=== PATIENT | male | born 1975 | race Caucasian/White ===

== ENCOUNTER → 2020-02-23 | Outpatient (CLI) | payer OTHER ==
[2020-02-23 08:56] LABS: BASOPHILS % (AUTO) 0 % (0-1); EOSINOPHILS % (AUTO) 2 % (1-7); LYMPHOCYTES % (AUTO) 19 % (22-44); MEAN CORPUSCULAR HEMOGLOBIN 29.9 pg (27.5-34.5); MEAN CORPUSCULAR HGB CONC 35.1 g/dL (33.2-36.2); MEAN PLATELET VOLUME 9.2 fL (7.4-10.4); MONOCYTES % (AUTO) 7 % (2-9); NEUTROPHILS % (AUTO) 72 % (42-75); PLATELET COUNT 144 x10^3/uL (130-400); RED BLOOD COUNT 5.06 x10^6/uL (4.38-5.82)
[2020-02-23 08:59] LABS: ANION GAP 4 mmol/L (5-15); CALCIUM 8.9 mg/dL (8.5-10.1); CHLORIDE 111 mmol/L (98-107); CREATININE 1.21 mg/dL (0.7-1.3); INTERNATIONAL NORMALIZED RATIO 1.04 (0.93-1.1)
[2020-02-23 09:01] LABS: MD NO
== END | disposition home or self-care (01) ==
LOC: STAR 07:40
PROVIDERS: ATTEND Orthopaedic Surgery
DX: Z01.810 Encounter for preprocedural cardiovascular examination (principal); Z01.818 Encounter for other preprocedural examination; M17.11 Unilateral primary osteoarthritis, right knee; M25.561 Pain in right knee; Z79.01 Long term (current) use of anticoagulants; Z20.828 Contact with and (suspected) exposure to other viral communicable diseases
CPT/HCPCS: 80048; 83036; 85025; 85610; 85730; 87081; 87147; 87635; 87806; G0475

== ENCOUNTER 2020-02-28 05:07 | Observation (INO) | payer OTHER ==
[~2020-02-28] VITALS: Ht 188 cm; Wt 115.9 kg
[2020-02-28 06:00] VITALS: BP 125/86
[2020-02-28] MEDS ORDERED: ACETAMINOPHEN 500 MG TABLET PO ONE (06:00)
[2020-02-28] MEDS ORDERED: GABAPENTIN 300 MG CAPSULE PO ONE (06:00)
[2020-02-28] MEDS ORDERED: CHLORHEXIDINE 15 ML UDC MM ONE (06:00)
[2020-02-28] MEDS ORDERED: LACTATED RINGERS 1,000 ML IV SCH (06:00)
[2020-02-28] MEDS ORDERED: ROPIvacaine/PF 0.2%, 20 ML ONE (06:23)
[2020-02-28] MEDS ORDERED: TRANEXAMIC ACID 100 MG/ML, 10ML ONE (06:23)
[2020-02-28] MEDS ORDERED: KETOROLAC 60 MG/2 ML ONE (06:23)
[2020-02-28] MEDS ORDERED: SODIUM CHLORIDE 0.9% 50 ML ONE (06:24)
[2020-02-28] MEDS ORDERED: EPINEPHRINE 1 MG/ML, 1ML ONE ×2 (06:24→06:28)
[2020-02-28] MEDS ORDERED: FENTANYL PF 250 MCG/5ML ONE (06:26)
[2020-02-28] MEDS ORDERED: BUPIVACAINE/PF 0.5% ONE (06:34)
[2020-02-28] MEDS ORDERED: LIDOCAINE 1%, 20ML ONE (06:35)
[2020-02-28] MEDS ORDERED: TRIAMCINOLONE ACETONIDE 40 MG/ML, 1ML ONE ×2 (06:35→09:19)
[2020-02-28] MEDS ORDERED: MIDAZOLAM 1 MG/ML, 2ML ONE (06:52)
[2020-02-28] MEDS ORDERED: PROPOFOL 10 MG/ML, 20ML ONE (06:57)
[2020-02-28] MEDS ORDERED: SUCCINYLCHOLINE 20 MG/ML, 10ML ONE (06:57)
[2020-02-28] MEDS ORDERED: CEFAZOLIN 1,000 MG ONE (06:57)
[2020-02-28] MEDS ORDERED: ONDANSETRON 2MG/ML, 2ML ONE (06:57)
[2020-02-28] MEDS ORDERED: DEXAMETHASONE 4 MG/ML, 1ML ONE (06:57)
[2020-02-28] MEDS ORDERED: HYDROmorphone 1 MG/ML, 1ML INJ IVPush PRN ×2 (07:00→07:30)
[2020-02-28] MEDS ORDERED: ONDANSETRON 2MG/ML, 2ML IVPush PRN ×2 (07:00→07:30)
[2020-02-28] MEDS ORDERED: D5%-0.45NACL+KCL 20MEQ 1,000 ML IV SCH (07:00)
[2020-02-28] MEDS ORDERED: ONDANSETRON 4 MG TABLET PO PRN (07:00)
[2020-02-28] MEDS ORDERED: OXYcodone IR 5MG TABLET PO PRN (07:00)
[2020-02-28] MEDS ORDERED: PSYLLIUM PACKET PO PRN (07:00)
[2020-02-28] MEDS ORDERED: POLYETHYLENE GLYCOL 17 GM PACKET PO PRN (07:00)
[2020-02-28] MEDS ORDERED: METOCLOPRAMIDE 5 MG/ML, 2ML IVPush PRN (07:00)
[2020-02-28] MEDS ORDERED: MAGNESIUM HYDROXIDE 8%, 30ML UDC PO PRN (07:00)
[2020-02-28] MEDS ORDERED: SENNA/DOCUSATE TABLET PO PRN (07:00)
[2020-02-28] MEDS ORDERED: DIPHENHYDRAMINE 50 MG/ML, 1ML IVPush PRN ×2 (07:00→07:30)
[2020-02-28] MEDS ORDERED: ACETAMINOPHEN 325 MG TABLET PO SCH (07:00)
[2020-02-28] MEDS ORDERED: CEFAZOLIN PMX 1GM/50ML 50 ML IVPB SCH (07:00)
[2020-02-28] MEDS ORDERED: ALUMINUM/MAG/SIMETHICONE 30 ML UDC PO PRN (07:00)
[2020-02-28] MEDS ORDERED: DEXAMETHASONE 4 MG/ML, 1ML IVPush ONE (07:00)
[2020-02-28] MEDS ORDERED: KETOROLAC 30 MG/1 ML IV SCH (07:00)
[2020-02-28] MEDS ORDERED: ACETAMINOPHEN 650 MG/20.3 ML UDC PO PRN (07:00)
[2020-02-28] MEDS ORDERED: LABETALOL 5MG/ML, 20ML IV PRN (07:30)
[2020-02-28] MEDS ORDERED: DIAZEPAM 5 MG/ML, 2ML IVPush PRN (07:30)
[2020-02-28] MEDS ORDERED: MEPERIDINE/PF 25MG/0.5ML IVPush PRN (07:30)
[2020-02-28] MEDS ORDERED: hydrALAzine 20 MG/ML, 1ML IV PRN (07:30)
[2020-02-28] MEDS ORDERED: PROMETHAZINE 25 MG/ML, 1ML IVPush PRN (07:30)
[2020-02-28] MEDS ORDERED: METHOCARBAMOL 1,000 MG in DEXTROSE 5% 100 ML IV STA (08:26)
[2020-02-28] MEDS ORDERED: FENTANYL PF 100 MCG/2ML ONE (08:30)
[2020-02-28] MEDS ORDERED: DIPHENHYDRAMINE 25 MG CAPSULE PO PRN (08:30)
[2020-02-28] MEDS ORDERED: OXYcodone 5 MG/5 ML ORAL.SOL UDC ONE (08:30)
[2020-02-28] MEDS: OXYcodone 5 MG/5 ML ORAL.SOL UDC PO PRN ×2 (08:38→12:09)
[2020-02-28] MEDS: FENTANYL PF 100 MCG/2ML IV PRN ×2 (08:41→08:52)
[2020-02-28] MEDS ORDERED: DIAZEPAM 5 MG/ML, 2ML ONE (08:59)
[2020-02-28] MEDS ORDERED: TRANEXAMIC ACID 1,000 MG in SODIUM CHLORIDE 0.9% 100 ML IVPB ONE (09:00)
[2020-02-28] MEDS ORDERED: DOCUSATE 100 MG CAPSULE PO SCH (09:00)
[2020-02-28] MEDS ORDERED: TAMSULOSIN 0.4 MG CAP.ER.24H PO SCH (12:00)
[2020-02-28] MEDS ORDERED: ACETAMINOPHEN 325 MG TABLET ONE (12:15)
[2020-02-29] MEDS ORDERED: RIVAROXABAN 10 MG TABLET PO SCH (06:00)
== END 2020-02-28 15:00 | disposition home or self-care (01) ==
LOC: OUT 05:07 → ORIP 06:44
PROVIDERS: ADMIT Orthopaedic Surgery; ATTEND Orthopaedic Surgery
DX: M17.31 Unilateral post-traumatic osteoarthritis, right knee (principal); M17.0 Bilateral primary osteoarthritis of knee; Z79.899 Other long term (current) drug therapy
CPT/HCPCS: 20610; 27447; 73560; 97161; 97530; C1776; G0378; J0171; J0330; J0690; J1100; J1170; J1885; J2250; J2405; J2704; J2795; J2800; J3010; J3301; J3360; J3490; J7120; S0020